=== PATIENT | male | born 1990 | race Caucasian/White ===

== ENCOUNTER 2016-08-22 13:59 | Emergency (ER) | payer SELFPAY ==
[~2016-08-22] VITALS: Ht 177.8 cm; Wt 70.3 kg
[2016-08-22] MEDS ORDERED: HYDROmorphone PF 1 MG/ML DISP.SYRIN IV/SQ PRN (14:15)
[2016-08-22] MEDS ORDERED: 0.9 % SODIUM CHLORIDE 10 ML DISP.SYRIN. IV PRN (14:15)
[2016-08-22] MEDS ORDERED: IV NORMAL SALINE 1,000ML 1,000 ML IV SCH (14:15)
--- NOTE | 2016-08-22 14:21 | PHYS DOC ---
Past History Past Medical History: Kidney Stones Past Surgical History: No Surgical History Smoking: Non-smoker Alcohol Use: Occasionally Drug Use: None Adult General Chief Complaint Chief Complaint: ABDOMINAL PAIN HPI HPI Patient is a pleasant 26-year-old male with a history of kidney stones remotely about 3 years ago. Today he presents with flank pain that began earlier this morning after walking his dog. Patient began his normal morning got up to get up for a walk began having a little ache in his left flank that radiates around to the left lower abdomen became extremely increasingly nauseous and she vomited several times today. He denies any constipation, or loose stool, he denies also any fevers, chills, blood in the stool or vomit. Patient denies any trauma denies any recent exercise or heavy lifting that may contribute to the symptoms. Patient is not allergic to any medications he is not on any medication routinely he does not smoke but he does occasionally drink alcohol. Consolable family history of kidney stones in both his mother and father. He denies any other major medical problems or prior surgeries. Pain presently is about a 7 of 10 as he is resting comfortably. Is not changed by position or movement. Review of Systems Review of Systems Constitutional: Denies fever or chills [] Eyes: Denies change in visual acuity, redness, or eye pain [] HENT: Denies nasal congestion or sore throat [] Respiratory: Denies cough or shortness of breath [] Cardiovascular: No additional information not addressed in HPI [] GI he does complain of abdominal pain with nausea and vomiting nonbilious nonbloody but no bloody stools or diarrhea or constipation. : Denies dysuria or hematuria he does admit he's had decreased urinary output. Musculoskeletal: Denies back pain or joint pain [] Integument: Denies rash or skin lesions [] Neurologic: Denies headache, focal weakness or sensory changes [] Endocrine: Denies polyuria or polydipsia [] Physical Exam Physical Exam Signs evaluated heart rate of 59 blood pressure 114/60 saturation on room air 100%. Constitutional: Well developed, well nourished, he is uncomfortable, non-toxic appearance. [] Cardiovascular:Heart rate regular rhythm, no murmur [] Lungs & Thorax: Bilateral breath sounds clear to auscultation [] Abdomen: he does have tenderness to palpation over the left lower quadrant. There is no guarding rebound or organomegaly. [] Skin: Warm, dry, no erythema, no rash. [] Back: No tenderness, no CVA tenderness. [] Extremities: No tenderness, no cyanosis, no clubbing, ROM intact, no edema. [] Neurologic: Alert and oriented X 3, normal motor function, normal sensory function, no focal deficits noted. [] Psychologic: Affect normal, judgement normal, mood normal. [] Current Patient Data Lab Results Laboratory Tests Test 08/22/16 14:25 White Blood Count 19.4 x10^3/uL (4.0-11.0) H Red Blood Count 5.14 x10^6/uL (4.30-5.70) Hemoglobin 15.1 g/dL (13.0-17.5) Hematocrit 44.2 % (39.0-53.0) Mean Corpuscular Volume 86 fL (79-100) Mean Corpuscular Hemoglobin 29 pg (25-35) Mean Corpuscular Hemoglobin Concent 34 g/dL (31-37) Red Cell Distribution Width 13.1 % (11.5-14.5) Platelet Count 262 x10^3/uL (140-400) Neutrophils (%) (Auto) 93 % (31-73) H Lymphocytes (%) (Auto) 5 % (24-48) L Monocytes (%) (Auto) 2 % (0-9) Eosinophils (%) (Auto) 0 % (0-3) Basophils (%) (Auto) 0 % (0-3) Neutrophils # (Auto) 18.1 x10^3uL (1.8-7.7) H Lymphocytes # (Auto) 0.9 x10^3/uL (1.0-4.8) L Monocytes # (Auto) 0.4 x10^3/uL (0.0-1.1) Eosinophils # (Auto) 0.0 x10^3/uL (0.0-0.7) Basophils # (Auto) 0.0 x10^3/uL (0.0-0.2) Segmented Neutrophils % 93 % (35-66) H Band Neutrophils % 1 % (0-9) Lymphocytes % 6 % (24-48) L Monocytes % 0 % (0-10) Eosinophils % 0 % (0-5) Basophils % 0 % (0-3) Toxic Granulation Present Platelet Estimate Adequate (ADEQUATE) Platelet Clumps, EDTA Present Large Platelets Present Sodium Level 141 mmol/L (136-145) Potassium Level 3.8 mmol/L (3.5-5.1) Chloride Level 103 mmol/L (98-107) Carbon Dioxide Level 22 mmol/L (21-32) Anion Gap 16 (6-14) H Blood Urea Nitrogen 16 mg/dL (8-26) Creatinine 1.7 mg/dL (0.7-1.3) H Estimated GFR (Cockcroft-Gault) 49.0 BUN/Creatinine Ratio 9 (6-20) Glucose Level 114 mg/dL (70-99) H Calcium Level 9.6 mg/dL (8.5-10.1) Total Bilirubin 1.0 mg/dL (0.2-1.0) Aspartate Amino Transferase (AST) 16 U/L (15-37) Alanine Aminotransferase (ALT) 24 U/L (16-63) Alkaline Phosphatase 55 U/L (46-116) Total Protein 8.6 g/dL (6.4-8.2) H Albumin 4.8 g/dL (3.4-5.0) Albumin/Globulin Ratio 1.3 (1.0-1.7) Lipase 91 U/L (73-393) Vital Signs Date Time Temp Pulse Resp B/P (MAP) Pulse Ox O2 Delivery O2 Flow Rate FiO2 08/22/16 14:30 97.8 58 16 100 Room Air Vital Signs Date Time Temp Pulse Resp B/P (MAP) Pulse Ox O2 Delivery O2 Flow Rate FiO2 08/22/16 14:37 18 100 Room Air 08/22/16 14:30 97.8 58 EKG EKG [] Radiology/Procedures Radiology/Procedures [] IMAGING REPORT Signed PATIENT: JOSELINE MAGAÑA ACCOUNT: [id number] : 1990 LOCATION: ER AGE: 26 SEX: M EXAM STATUS: REG ER ORD. PHYSICIAN: ROSA OBREGON MD REASON: left flank pain PROCEDURE: CT ABDOMEN PELVIS WO CONTRAST Exam: CT abdomen and pelvis without contrast. HISTORY: Left flank pain for one day, history of stones. DATE OF SERVICE: 08/22/2016. COMPARISON: None available TECHNIQUE: Contiguous helical acquisitions are obtained through the abdomen and pelvis without IV contrast. Sagittal and coronal reformatted images are obtained and reviewed. FINDINGS: There is a 3.8 mm calculus in the left proximal ureter causing mild hydroureteral hydronephrosis. There are also multiple nonobstructing bilateral renal calculi. No perinephric stranding is seen. Lung bases are clear. The visualized heart is normal. Lack of IV contrast limits evaluation of abdominal viscera, however the liver, gallbladder, spleen and pancreas are normal. Both adrenal glands are symmetric. Aorta is normal in caliber. The small and large bowel loops are nondilated and unremarkable. Appendix is not clearly seen. No inflammatory changes are seen in the right lower quadrant. Urinary bladder is partially decompressed. The prostate gland, seminal vesicles and rectum appear normal. Interrogation of bone windows demonstrates no bony abnormality. IMPRESSION: 3.8 mm obstructing calculus in the left proximal ureter causing mild proximal hydroureteronephrosis. Nonobstructing bilateral renal calculi. PQRS Compliance Statement: One or more of the following individualized dose reduction techniques were utilized for this examination: 1. Automated exposure control 2. Adjustment of the mA and/or kV according to patient size 3. Use of iterative reconstruction technique Electronically signed by: Lashon Mattson MD (08/22/2016 3:34 PM) DICTATED AND SIGNED BY: LASHON MATTSON MD DATE: 08/22/16 1522 CC: ROSA OBREGON MD; PCP,NO ~ Course & Med Decision Making Course & Med Decision Making Pertinent Labs and Imaging studies reviewed. (See chart for details) [] Time at 2:55 PM Patient tells me that their symptoms given during CC are improved. We reviewed labs with patient and any family at bedside. He felt markedly better after IV fluids, Dilaudid, Zofran and Toradol. CT scan of the abdomen and pelvis is still pending. He is noted to have an elevated white count of 17,000 with a left shift, he also is noted to have an increased creatinine of 1.7 which is concerning for possible obstruction. Patient tells me that their symptoms given during CC are improved. We reviewed labs and radiology reports with patient and any family at bedside. Time is now 3 :[address] scan demonstrates 3.8 mm stone with mild hydroureter. I called urology for follow-up and arrangement of follow-up as an outpatient. Given his acute renal injury. His creatinine 1.7 and not require hospitalization as he is not completely obstructed but I will wait for urology further consultation advice before dispositioning this patient. Patient is still very comfortable at this time Patient's urinalysis there is straight pH greater than 8.5 with sediment but no evidence of infection. Impression: Acute renal injury, renal failure, kidney stone. We have placed a page at approximately 3:20 PM. This ent consultant was recalled again at 4:00 with no blood. When I was not able to get a hold of the the urologist I talked to internal medicine Dr. C[facility] [employer] note: [employer] called at of the service 4:20 pm Consult called back at 4:20 pm Discussed the case I presented and they agreed with consultation with urology although there is no urology covered for [facility] at this time. He advised me that during to transfer the patient to may be literally impossible and encouraged to consult a urologist at [facility] or [facility] .. Urology consult through [facility] transfer center. At approximately 4:25 PM 20 5: [address] Manpreet Dutton over the [facility] gave me a call back and we discussed the case. He did agree that the patient has a concerning history with this question will UTI elevated white blood cell count and creatinine. But given that this pain is well under control without fever without vomiting or calms tolerating by mouth medications he dry to trial with forced hydration and pain control and follow-up on Wednesday in his office would be very appropriate. This point he encouraged to place him on antibiotics which I concurred with and pain control as well as Zofran for nausea and very close evaluation again in his office. He provided me his number to his office and his name and I will encourage my patient to follow up with. Impression: Kidney stone, abdominal pain resolving, UTI. Renal insufficiency Disposition: Discharged home with close PCP and urology follow-up within next 24 -48 hours. Asked to return immediately for any fever greater than 102.2, inability to keep food and fluids down or tolerate the pain. If he is not able to urinate within 12 hours or has new questions or concerns. Dragon Disclaimer Dragon Disclaimer This chart was dictated in whole or in part using Voice Recognition software in a busy, high-work load, and often noisy Emergency Department environment. It may contain unintended and wholly unrecognized errors or omissions. Departure Departure: Impression: Primary Impression: UTI (urinary tract infection) Additional Impressions: Renal insufficiency Kidney stone Disposition: HOME, SELF-CARE Condition: IMPROVED Referrals: PCP,NO (PCP) Patient Instructions: Acute Kidney Injury, Diet for Kidney Stones, Kidney Stones, Urinary Tract Infection Additional Instructions: These call urology Dr. Manpreet Dutton at [phone] at 8 AM on Wednesday morning for follow-up. Please return immediately for any increasing pain, fever greater than 102.2 despite treatment or if you have any questions or concerns or inability to urinate greater than 12 hours. i Would advise you to fill your medications to include antibiotic and take it appropriately as prescribed Scripts Ondansetron (ZOFRAN ODT) 8 Mg Tab.rapdis 4 MG PO TID for 7 Days Prov: ROSA OBREGON MD 08/22/16 Naproxen (NAPROSYN) 500 Mg Tablet 1 TAB PO BID, #20 TAB 1 Refill Prov: ROSA OBREGON MD 08/22/16 Hydrocodone Bit/Acetaminophen (HYDROCODONE-APAP 5-325 ) 1 Each Tablet 1-2 TAB PO PRN Q6HRS Y for PAIN for 5 Days, #15 TAB 0 Refills Prov: ROSA OBREGON MD 08/22/16 Tamsulosin Hcl (FLOMAX) 0.4 Mg Cap.er.24h 1 CAP PO DAILY, #30 CAP 11 Refills Prov: ROSA OBREGON MD 08/22/16 Ciprofloxacin Hcl (CIPROFLOXACIN HCL) 500 Mg Tablet 1 TAB PO BID, #20 TAB Prov: ROSA OBREGON MD 08/22/16 Problem Qualifiers ROSA OBREGON MD Aug 22, 2016 14:21
[2016-08-22 14:30] VITALS: BP 114/60
[2016-08-22] MEDS ORDERED: ONDANSETRON PF 4 MG/2 ML VIAL. IV ONE (14:30)
[2016-08-22] MEDS ORDERED: KETOROLAC 30 MG/ML VIAL. IV ONE (14:30)
[2016-08-22 14:38] LABS: BASO % 0 % (0-3); EOS % 0 % (0-3); HEMATOCRIT 44.2 % (39.0-53.0); HEMOGLOBIN 15.1 g/dL (13.0-17.5); LYMPH # 0.9 x10^3/uL (1.0-4.8); LYMPH % 5 % (24-48); MEAN CORPUSCULAR HEMOGLOBIN 29 pg (25-35); MEAN CORPUSCULAR HGB CONC 34 g/dL (31-37); MEAN CORPUSCULAR VOLUME 86 fL (79-100); MONO # 0.4 x10^3/uL (0.0-1.1); MONO % 2 % (0-9); NEUT # 18.1 x10^3uL (1.8-7.7); NEUT % 93 % (31-73); PLATELET COUNT 262 x10^3/uL (140-400); RED BLOOD COUNT 5.14 x10^6/uL (4.30-5.70); RED CELL DISTRIBUTION WIDTH 13.1 % (11.5-14.5); WHITE BLOOD COUNT 19.4 x10^3/uL (4.0-11.0)
[2016-08-22 14:50] LABS: ALBUMIN 4.8 g/dL (3.4-5.0); ALBUMIN/GLOBULIN RATIO 1.3 (1.0-1.7); CALCIUM 9.6 mg/dL (8.5-10.1); CREATININE 1.7 mg/dL (0.7-1.3); POTASSIUM 3.8 mmol/L (3.5-5.1); TOTAL PROTEIN 8.6 g/dL (6.4-8.2)
[2016-08-22 15:12] LABS: % BANDS 1 % (0-9); % BASOS 0 % (0-3); % EOS 0 % (0-5); % LYMPHS 6 % (24-48); % MONOS 0 % (0-10); % SEGS 93 % (35-66); PLATELET CLUMP PRESENT; PLT ESTIMATE ADEQUATE (ADEQUATE)
[2016-08-22 15:13] LABS: TOXIC GRANULATION PRESENT
--- NOTE | 2016-08-22 15:38 | RAD ---
Exam: CT abdomen and pelvis without contrast. HISTORY: Left flank pain for one day, history of stones. DATE OF SERVICE: 08/22/2016. COMPARISON: None available TECHNIQUE: Contiguous helical acquisitions are obtained through the abdomen and pelvis without IV contrast. Sagittal and coronal reformatted images are obtained and reviewed. FINDINGS: There is a 3.8 mm calculus in the left proximal ureter causing mild hydroureteral hydronephrosis. There are also multiple nonobstructing bilateral renal calculi. No perinephric stranding is seen. Lung bases are clear. The visualized heart is normal. Lack of IV contrast limits evaluation of abdominal viscera, however the liver, gallbladder, spleen and pancreas are normal. Both adrenal glands are symmetric. Aorta is normal in caliber. The small and large bowel loops are nondilated and unremarkable. Appendix is not clearly seen. No inflammatory changes are seen in the right lower quadrant. Urinary bladder is partially decompressed. The prostate gland, seminal vesicles and rectum appear normal. Interrogation of bone windows demonstrates no bony abnormality. IMPRESSION: 3.8 mm obstructing calculus in the left proximal ureter causing mild proximal hydroureteronephrosis. Nonobstructing bilateral renal calculi. PQRS Compliance Statement: One or more of the following individualized dose reduction techniques were utilized for this examination: 1. Automated exposure control 2. Adjustment of the mA and/or kV according to patient size 3. Use of iterative reconstruction technique Electronically signed by: Lashon Mattson MD (08/22/2016 3:34 PM)
[2016-08-22 15:50] LABS: BILIRUBIN,URINE NEG (NEG); CLARITY,URINE CLEAR; COLOR,URINE AMBER; GLUCOSE,URINE NEG (NEG); NITRITE,URINE NEG (NEG); UROBILINOGEN,URINE 1 mg/dL (0.2 mg/dL)
[2016-08-22 15:51] LABS: BACTERIA,URINE FEW /HPF (0-FEW); RBC,URINE RARE /HPF (0-2); SQUAMOUS EPITHELIAL CELL,UR OCC /LPF
[2016-08-22] MEDS ORDERED: HYDR-2758 PO (17:22)
[2016-08-22] MEDS ORDERED: CIPR500T PO (17:22)
[2016-08-22] MEDS ORDERED: NAPR500T PO (17:22)
[2016-08-22] MEDS ORDERED: TAMS0.4C97 PO (17:22)
[2016-08-22] MEDS ORDERED: ONDA8TAB12 PO (17:22)
== END 2016-08-22 17:34 | disposition home or self-care (01) ==
LOC: ER 13:59
DX: N39.0 Urinary tract infection, site not specified (principal); N28.9 Disorder of kidney and ureter, unspecified; N20.0 Calculus of kidney
CPT/HCPCS: 36415; 74176; 80053; 81001; 83690; 85007; 85027; 96361; 96374; 96375; 99285; J1170; J1885; J2405; J7030